=== PATIENT | male | born 1980 | race African-American/Black ===

== ENCOUNTER 2021-05-28 18:47 | Emergency (ER) | payer SELFPAY ==
--- NOTE | ~2021-05-28 | CT_ITS ---
EXAMINATION: CT FACIAL BONES WITH CONTRAST CLINICAL INFORMATION: Left eye swelling. Ecchymosis. Cellulitis. COMPARISON: None TECHNIQUE: Axial images obtained through the orbits after intravenous injection of 85 mL Omnipaque 350. Coronal and sagittal reformatted images are performed at CT scanner This CT examination was performed using dose optimization techniques as appropriate, variously including the following: *Automated exposure control *Adjustment of mA and/or kV according to patient size (this includes techniques or standardized protocols for targeted exams where dose is matched to indication/reason for exam; i.e. extremities or head) *Use of iterative reconstruction technique DLP: 407 mGy-cm FINDINGS: Preseptal swelling of the left orbit. No involvement of the orbital globe or retrobulbar structures. There is a small pocket of fluid adjacent to the lateral side of the left orbital globe this has rim enhancement and a small air collection is suggestive of an abscess. The left frontal sinus is entirely opacified. Mucosal thickening extends through the posterior into the left anterior ethmoid sinus. The left maxillary sinus is opacified. There is thick rim of mucosal thickening nearly entirely opacifying the left maxillary sinus. Partially visualized intracranial structures unremarkable. CT/CT facial bones w con IMPRESSION: 1. Preseptal swelling in the left orbit with no involvement of the orbital globe or retrobulbar structures. Small fluid collection adjacent to the anterior lateral surface of the left orbital globe concerning for abscess. 2. Sinus disease.
[2021-05-28 18:48] VITALS: BP 194/123; PULSE 87; RESP 16; TEMP 36.9; O2SAT 98; BMI 23.4
[2021-05-28 19:57] VITALS: BP 173/113; PULSE 88; RESP 20; O2SAT 99
--- NOTE | 2021-05-28 20:44 | ED.EYEPROB ---
HPI - Eye Problem General Chief complaint: Eye Problems Stated complaint: swollen left eye Time Seen by Provider: 05/28/21 19:49 Source: patient Mode of arrival: ambulatory History of Present Illness HPI Narrative: 40-year-old male with past medical history of hypertension (noncompliant on medication), presenting to ED complaining painful/swollen left eye since yesterday morning. Denies known trauma/injury or fall. Reports pain with EOM. Denies vision change/loss, fever/chills, sore throat, ear pain. Reports is supposed to wear glasses however does not. Denies chest pain, headache, numbness/tingling chief complaint: eye pain Related Data Allergies Allergy/AdvReac Type Severity Reaction Status Date / Time No Known Allergies Allergy Verified 05/28/21 18:54 Review of Systems Review of Systems: Constitutional: No Fever, No Chills, No Fatigue, No Malaise ENT/Mouth No Ear Pain, No Nasal Congestion, No Sinus Pain, No Hoarseness, No sore throat, No Rhinorrhea, No Swallowing Difficulty Eyes: +Eye Pain, +Swelling, +Redness, No Foreign Body, +tearing Discharge, No Vision Changes, +pain with EOMs Cardiovascular: No Chest Pain, No SOB, No Edema, No Palpitations Respiratory: No Cough, No Dyspnea Gastrointestinal: No Nausea, No Vomiting, No Diarrhea, No Constipation, No Abdominal pain Genitourinary: No Dysuria, No Urinary Frequency, No Urgency, No Flank Pain Musculoskeletal: No joint pain, No Myalgias, No Joint Swelling Skin: No Skin Lesions, No rash Neuro: No Weakness, No Numbness, No Headache Yes all other systems are reviewed and are negative [facility] Past Medical History Attestation statement: The following information was validated with the patient. Medical History HTN (hypertension) Social History Social History Advance Directives: No Advance Directives Information Provided: Yes Physical Exam Vital Signs: Vital Signs: Last Vital Signs Temp 99.4 F 05/29/21 00:19 Pulse 108 H 05/29/21 00:19 Resp 16 05/29/21 00:19 BP 179/95 H 05/29/21 00:19 Pulse Ox 99 05/29/21 00:19 BMI result Body Mass Index 23.4 Const: General: cooperative and no acute distress Orientation/consciousness: patient oriented x3 Limitations: no limitations HENMT: Head: Yes normal to inspection Ears: hearing grossly normal bilaterally, TM's normal bilaterally and mastoids normal General nose exam: Normal external nose present Face and sinus: Yes normal facial exam Mouth: Normal oral and palatal mucosa present Throat: Yes posterior oropharynx normal, Yes tonsils normal, Yes uvula midline, No uvula laterally displaced and No uvular edema Eyes: Other: Please refer to images above. Left eye with notable periorbital swelling No fluctuance or crepitus. EOMs intact with pain, without entrapment. + diffuse conjunctival chemosis. PERRLA. EOM: EOMs intact bilaterally Neck: Neck: Yes normal visual inspection, Yes no lymphadenopathy, Yes no meningeal signs and Yes supple Resp: Effort & Inspection: normal respiratory effort and no respiratory distress Cardio: Rate: regular rate GI: Inspection: Yes normal to inspection Skin: Rashes: no rashes Wounds: no wounds Neuro: General: patient oriented x3 and no meningeal signs Gait exam (Neuro): Normal gait present Extrem: General: Yes normal to inspection Course Course Course Narrative: -patient empirically covered with vancomycin and ceftriaxone for orbital cellulitis -mild leukocytosis of 11.3. ESR WNL. CRP mildly elevated. Lactic acid elevated to 2.2 > patient does not meet severe sepsis criteria -2213--patient persistently hypertensive after p.o. Norvasc, 5mg IV hydralazine ordered -CT facial bones w con IMPRESSION: 1. Preseptal swelling in the left orbit with no involvement of the orbital globe or retrobulbar structures. Small fluid collection adjacent to the anterior lateral surface of the left orbital globe concerning for abscess. 2. Sinus disease. >>1100 --ophthalmology Dr. Prajapati called, message left, however unable to get ahold of -patient continuously hypertensive 177/115 > additional 5 mg of IV Hydralazine given -11:25--[facility] transfer line called, spoke to ED attending Dr. Roger who accepted transfer -0030--repeat lactate normalized to 1.1. BP with improvement after 2nd dose of Hydralazine to 179/95 MDM - Eye Problem MDM Narrative Medical decision making narrative: 40-year-old male with past medical history of hypertension (noncompliant on medication), presenting to ED complaining painful/swollen left eye since yesterday morning. On exam hypertensive, physical exam as above please refer to images. Concern for orbital cellulitis vs preseptal cellulitis. Lower concern for FB. No evidence of globe rupture. Low concern for hypertensive emergency as patient denies headache, CP/SOB Plan: EKG, labs, lactic/blood cultures, CT face, empiric IV antibiotics, BP control Low concern for severe sepsis at this time Medical Records Attestation: I reviewed the patient's medical records. Lab Data Attestation: I reviewed the patient's lab results. Result diagrams: 05/28/21 20:44 05/28/21 21:12 Labs: Lab Results 05/28/21 05/28/21 05/28/21 Range/Units 20:44 20:44 20:44 WBC 11.3 H (4.8-10.8) X10*3/uL RBC 3.98 L (4.60-5.80) X10*6/uL Hgb 13.6 L (14.0-18.0) g/dl Hct 40.4 L (42.0-52.0) % MCV 101.5 H (80.0-98.0) fL MCH 34.2 H (27.0-33.0) pg MCHC 33.7 (31.0-36.0) g/dl RDW 11.7 (11.0-16.0) % Plt Count 227 (160-400) X10*3/uL MPV 8.9 L (9.4-12.4) fL Immature Gran % (Auto) 0.3 (0.0-0.4) % Neut % (Auto) 74.6 H (45-73) % Lymph % (Auto) 16.4 L (20-40) % [place] % (Auto) 7.9 (2-11) % Eos % (Auto) 0.4 (0-4) % Baso % (Auto) 0.4 (0-2) % Lymph # (Auto) 1.9 (1.2-4.9) X10*3/uL [place] # (Auto) 0.9 (0.1-1.2) X10*3/uL Eos # (Auto) 0.1 (0.0-0.4) X10*3/uL Baso # (Auto) 0.1 (0.0-0.2) X10*3/uL Abs Immat Gran (auto) 0.03 (0.00-0.03) X10*3/uL Absolute Neuts (auto) 8.5 H (2.0-8.3) x10*3/uL Absolute Nucleated RBC 0.000 (0.0-0.012) X10*3/uL Nucleated RBC % (auto) 0.0 (0.0-0.2) /100WBC ESR 6 (0-15) MM/HR Sodium (135-145) mmol/L Potassium (3.3-5.1) mmol/L Chloride (96-108) mmol/L Carbon Dioxide (22-29) mmol/L Anion Gap (12-20) BUN (9-16) mg/dL Creatinine (0.5-1.4) mg/dL Estim Creat Clear Calc Estimated GFR Random Glucose (60-115) mg/dL Lactic Acid 2.2 H* (0.5-2.0) mmol/L Lactic Acid F/U @ 2Hr (0.5-2.0) mmol/L Calcium (8.4-10.2) mg/dL C-Reactive Protein (< or = 0.50) mg/dL COVID-19 (ANGELA) (Negative) COVID-19 Clin Com 05/28/21 05/28/21 05/28/21 Range/Units 21:12 23:49 23:49 WBC (4.8-10.8) X10*3/uL RBC (4.60-5.80) X10*6/uL Hgb (14.0-18.0) g/dl Hct (42.0-52.0) % MCV (80.0-98.0) fL MCH (27.0-33.0) pg MCHC (31.0-36.0) g/dl RDW (11.0-16.0) % Plt Count (160-400) X10*3/uL MPV (9.4-12.4) fL Immature Gran % (Auto) (0.0-0.4) % Neut % (Auto) (45-73) % Lymph % (Auto) (20-40) % [place] % (Auto) (2-11) % Eos % (Auto) (0-4) % Baso % (Auto) (0-2) % Lymph # (Auto) (1.2-4.9) X10*3/uL [place] # (Auto) (0.1-1.2) X10*3/uL Eos # (Auto) (0.0-0.4) X10*3/uL Baso # (Auto) (0.0-0.2) X10*3/uL Abs Immat Gran (auto) (0.00-0.03) X10*3/uL Absolute Neuts (auto) (2.0-8.3) x10*3/uL Absolute Nucleated RBC (0.0-0.012) X10*3/uL Nucleated RBC % (auto) (0.0-0.2) /100WBC ESR (0-15) MM/HR Sodium 139 (135-145) mmol/L Potassium 3.7 (3.3-5.1) mmol/L Chloride 103 (96-108) mmol/L Carbon Dioxide 26 (22-29) mmol/L Anion Gap 14 (12-20) BUN 7 L (9-16) mg/dL Creatinine 0.89 (0.5-1.4) mg/dL Estim Creat Clear Calc 108.1 Estimated GFR > 60 Random Glucose 84 (60-115) mg/dL Lactic Acid (0.5-2.0) mmol/L Lactic Acid F/U @ 2Hr 1.1 (0.5-2.0) mmol/L Calcium 9.6 (8.4-10.2) mg/dL C-Reactive Protein 2.13 H (< or = 0.50) mg/dL COVID-19 (ANGELA) Negative (Negative) COVID-19 Clin Com See Note ECG Data Attestation: I personally reviewed and interpreted this ECG as follows: ECG interpretation date: 05/29/21 ECG interpretation time: 22:20 Interpretation: EKG normal sinus rhythm at a rate of 83. Pr interval 166. QRS 88. QTC 425. no STEMI Critical Care Time Critical Care Time Critical Care Time: Yes Total Critical Care Time: 60 Attestation: I have personally provided critical care time exclusive of time spent on separately billable procedures. Time includes review of lab data, radiology results, discussion with consultants, and monitoring for potential decompensation. Intervention performed as documented. Discharge Plan Discharge Clinical Impression: Preseptal cellulitis of left eye, Abscess Patient Disposition: [facility] Hospital Transfer Details: [facility] accepting physician Dr. Roger
[2021-05-28 20:49] LABS: MANUAL DIFF FLAG NO
[2021-05-28 20:52] LABS: Basophils Absolute Auto 0.1 X10*3/uL (0.0-0.2); Basophils Percent Auto 0.4 % (0-2); Eosinophils Absolute Auto 0.1 X10*3/uL (0.0-0.4); Eosinophils Percent Auto 0.4 % (0-4); Hematocrit 40.4 % (42.0-52.0); Hemoglobin 13.6 g/dl (14.0-18.0); Imm Gran Abs Auto 0.03 X10*3/uL (0.00-0.03); Imm Gran Pct Auto 0.3 % (0.0-0.4); Lymphocytes Absolute Auto 1.9 X10*3/uL (1.2-4.9); Lymphocytes Percent Auto 16.4 % (20-40); Mean Corpuscular HGB Conc 33.7 g/dl (31.0-36.0); Mean Corpuscular Hemoglobin 34.2 pg (27.0-33.0); Mean Corpuscular Volume 101.5 fL (80.0-98.0); Mean Platelet Volume 8.9 fL (9.4-12.4); Monocytes Absolute Auto 0.9 X10*3/uL (0.1-1.2); Monocytes Percent Auto 7.9 % (2-11); Neutrophils Absolute Auto 8.5 x10*3/uL (2.0-8.3); Neutrophils Percent Auto 74.6 % (45-73); Platelet Count 227 X10*3/uL (160-400); Red Blood Count 3.98 X10*6/uL (4.60-5.80); Red Cell Distribution Width 11.7 % (11.0-16.0); White Blood Count 11.3 X10*3/uL (4.8-10.8)
[2021-05-28] MEDS: cefTRIAXone sodium 2 GM in 0.9 % Sodium Chloride 50 ML IV (21:01)
[2021-05-28] MEDS: amLODIPine Besylate 5 MG TABLET PO (21:02)
[2021-05-28 21:03] VITALS: BP 170/118; PULSE 87
[2021-05-28 21:08] LABS: Lactic Acid 2.2 mmol/L (0.5-2.0)
--- NOTE | 2021-05-28 21:25 | PC.NURSE ---
DELAY IN LABS AND ANTIBIOTICS DUE TO IV ACCESS DIFFICULT TO OBTAIN. PATIENT IS COOPERATIVE WITH CARE AND REATTEMPT FOR IV ACCESS.
[2021-05-28 21:26] LABS: Erythrocyte Sedimentation Rate 6 MM/HR (0-15)
[2021-05-28 21:36] LABS: Anion Gap 14 (12-20); Blood Urea Nitrogen 7 mg/dL (9-16); C Reactive Protein 2.13 mg/dL (< or = 0.50); Calcium 9.6 mg/dL (8.4-10.2); Carbon Dioxide 26 mmol/L (22-29); Chloride 103 mmol/L (96-108); Creatinine Clr Calc Pharmacy 108.1; Estimated Glomerular Filt Rate > 60; Glucose Random 84 mg/dL (60-115); Potassium 3.7 mmol/L (3.3-5.1); Sodium 139 mmol/L (135-145)
[2021-05-28] MEDS: iohexoL 350 MG/ML 100 ML INFUS..BTL IV (21:49)
[2021-05-28] MEDS: vancomycin HCL 750 MG in 0.9 % Sodium Chloride 250 ML 265 MG IV (21:50)
--- NOTE | 2021-05-28 22:14 | ECG_ITS ---
Test Reason : HYPERTENTION Blood Pressure : / mmHG Vent. Rate : 083 BPM Atrial Rate : 083 BPM P-R Int : 166 ms QRS Dur : 088 ms QT Int : 362 ms P-R-T Axes : 073 042 012 degrees QTc Int : 425 ms Normal sinus rhythm Nonspecific T wave abnormality Abnormal ECG No previous ECGs available Referred By: Ines Jones Electronically Signed By:Damaso Zimmerman
[2021-05-28 22:26] VITALS: BP 177/115; PULSE 82; RESP 20; O2SAT 97
[2021-05-28] MEDS: 0.9 % Sodium Chloride 1,000 ML 999 ML IV (22:36)
[2021-05-28] MEDS: hydrALAZINE HCl 20 MG/ML VIAL 5 MG IVPUSH ×2 (22:36→23:33)
[2021-05-28 22:47] LABS: Reflex Lactate? Lactic Acid Added
--- NOTE | 2021-05-28 23:27 | PC.NURSE ---
PATIENT CONTINUED TO HAVE HYPERTENSION. ATTEMPTING TO MEDICATE PER MAR, PATIENT REFUSING STATING THAT MEDICATION HAS NOT WORKED YET AND NOT WANTING ADDITIONAL MEDICATIONS TO LOWER BLOOD PRESSURE. PROVIDER MADE AWARE AND GOING IN TO SPEAK WITH PATIENT REGARDING RESULTS AND PLAN OF CARE.
[2021-05-28 23:33] VITALS: BP 191/116; PULSE 94
[2021-05-29 00:11] LABS: ~Lactic Acid-LAB USE ONLY 1.1 mmol/L (0.5-2.0)
[2021-05-29 00:19] VITALS: BP 179/95; PULSE 108; RESP 16; TEMP 37.4; O2SAT 99
[2021-05-29 00:25] LABS: COVID-19 Test Negative (Negative)
--- NOTE | 2021-05-29 00:40 | PC.NURSE ---
spoke with Mey wheeler at [facility] emergency department and gave report to her regarding the transfer of this patient. receiving rn had no further questions or concerns at this time.
== END 2021-05-29 01:06 | disposition short-term general hospital (02) ==
PROVIDERS: Physician Assistant; Emergency Provider Internal Medicine
DX: H05.012 Cellulitis of left orbit (principal); H57.12 Ocular pain, left eye; I10 Essential (primary) hypertension; Z91.14 Patient's other noncompliance with medication regimen; Z20.822 Contact with and (suspected) exposure to COVID-19
CPT/HCPCS: 36415; 70487; 80048; 83605; 85025; 85652; 86140; 87040; 87635; 93005; 96361; 96365; 96375; 96376; 99285; 99291; J0696; J3370; Q9967

== ENCOUNTER 2024-12-30 21:42 | Emergency (ER) | payer SELFPAY ==
[2024-12-30 21:53] VITALS: BP 189/88; PULSE 111; RESP 18; TEMP 36.2; O2SAT 97; BMI 20.4
[2024-12-30 22:02] VITALS: BP 189/88; PULSE 111; RESP 18; TEMP 36.2; O2SAT 97
--- OUTSIDE RECORDS SUMMARY | 2024-12-30 22:48 | XMS_ITS | Clinical Summary ---
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 Name Role Phone Unavailable Primary Care Provider Unavailabl e Social History Tobacco Use Types Packs/Day Years Used Date Smoking Tobacco: Never Assessed Sex and Gender Information Value Date Recorded Sex Assigned at Not on file Legal Sex Male 12:17 PM EST Gender Identity Not on file Sexual Orientation Not on file Plan of Treatment Health Maintenance Due Date Last Done Comments DTaP,Tdap,and Td Vaccines (1 - Tdap) 1997 Hepatitis B Vaccines (1 of 3 - 19+ 3-dose series) 1997 Depression Screening 04/17/2024 COVID-19 Vaccine (1 - 2023-2 5 season) 2024 Influenza Vaccine (#1) 2024 HIB Vaccines Aged Out No longer eligi ble based on patient's age to complete this topic HPV Vaccines Aged Out No longer eligi ble based on patient's age to complete this topic Hepatitis A Vaccines Aged Out No long er eligible based on patient's age to complete this topic IPV Vaccines Aged Out No longer eligi ble based on patient's age to complete this topic MMR Vaccines Aged Out No longer eligi ble based on patient's age to complete this topic Meningococcal ACWY Vaccine Aged Out N o longer eligible based on patient's age to complete this topic Meningococcal B Vaccine Aged Out No l onger eligible based on patient's age to complete this topic Pneumococcal Vaccine: Pediat rics (0 to 5 Years) and At-Risk Patients (6 to 49 Years) Aged Out No longer eligible b ased on patient's age to complete this topic RSV Immunization Patients Un edwin 20 months Aged Out No longer eligible b ased on patient's age to complete this topic Varicella Vaccines Aged Out No longer eligible based on patient's age to complete this topic
--- NOTE | 2024-12-30 23:25 | ED.GENADULT ---
HPI - General Adult General Chief complaint: ETOH/Substance Use Stated complaint: etoh Time Seen by Provider: 12/30/24 22:05 Source: patient and RN notes reviewed Mode of arrival: EMS Limitations: altered mental status History of Present Illness ED Provider: Cony SPENCE narrative: 44-year-old male presents for evaluation of acute alcohol intoxication. Per EMS, the patient was found in the side of the road and brought to the hospital for evaluation. The patient admits to drinking alcohol today Denies any drug use. He has no complaints in his wondering why he is here and if he can be discharged home because he has work in the morning Related Data Allergies Allergy/AdvReac Type Severity Reaction Status Date / Time No Known Allergies Allergy Verified 12/30/24 22:01 Review of Systems Constitutional: Constitutional: Denies body ache(s), Denies chills, Denies fever(s) and Denies headache(s) Eyes: Eyes: Denies blurry vision ENT: Denies vertigo, Denies dizziness, Denies dry mouth and Denies headache(s) Cardiovascular: Cardiovascular: Denies chest pain and Denies dyspnea on exertion Respiratory: Respiratory: Denies cough and Denies dyspnea on exertion Gastrointestinal: Gastrointestinal: Denies abdominal pain, Denies nausea and Denies vomiting Musculoskeletal: Musculoskeletal: Denies back pain Integumentary/Breasts: Skin/Breast: Denies rash Neurologic: Denies vertigo, Denies dizziness and Denies headache(s) Psychiatric: Psychiatric: Denies anxiety PMF Past Medical History Medical History HTN (hypertension) Social History Social History Smoked in Last 30 Days: No Use of substances other than those prescribed or required for medical reasons: No Advance Directives: No Advance Directives Information Provided: No Do you have a plan to hurt others: No Plan Physical Exam ED Vital Signs: Vital Signs - 24 hr 12/30/24 21:53 12/30/24 22:02 12/31/24 00:26 Temperature 97.2 F 97.2 F Pulse Rate 111 H 111 H Respiratory Rate 18 18 16 Blood Pressure 189/88 H 189/88 H Pulse Oximetry 97 97 97 Oxygen Delivery Method Room Air Room Air Room Air 12/31/24 02:00 Temperature Pulse Rate Respiratory Rate 16 Blood Pressure Pulse Oximetry Oxygen Delivery Method BMI result Body Mass Index 20.4 Const General: healthy appearing, comfortable, no acute distress, alert and awake Nutritional Appearance: well nourished Orientation/consciousness: patient oriented x3 HENMT Head: Yes normocephalic and Yes atraumatic Eyes Eyelids: Yes eyelids normal Conjunctivae: conjunctivae normal Sclerae: sclerae normal Corneas: corneas normal Pupils: Equal, round and reactive pupils present EOM: EOMs intact bilaterally Neck Neck: Yes full ROM Resp Effort & Inspection: normal respiratory effort, able to speak in complete sentences and not labored Skin General skin exam: elasticity normal Neuro General: patient oriented x3 Cranial nerves: Yes Equal, round and reactive pupils present and Yes Bilaterally intact EOM present Cognition (Neuro): normal cognition Extrem Other: Moving all extremities well without any obvious deformities Course Reevaluation(s) Reevaluation #1: The patient resting comfortably. Continue observation Time: 02:16 Reevaluation #2: 6:46 AM 12/31/2024 (Ailyn MONAHAN): Patient is signed out to this provider at shift change, in summary the patient is a 44-year-old male presenting to the ED for evaluation after he was found on the road side with alcohol intoxication. Per sign-out the patient had no trauma, admits to alcohol use and denied any other substance use. The patient was signed out pending sober re-evaluation. At this time the patient is awake, ambulated with a steady gait, and appropriate for discharge. Medical Decision Making Medical Decision Making MDM Narrative: 44-year-old male presents for evaluation of alcohol intoxication. The patient admits to drinking alcohol today. He reports that he lives in [place] in his not quite sure how he ended up and [place]. He offers no complaints, there are no signs of trauma, he is well-appearing with stable vital signs. However he seems somewhat unsteady on his feet with ambulation. Plan for observation and metabolize to a safe discharge Differential Diagnosis Differential Diagnoses: The differential diagnosis associated with the presentation includes Acute alcohol intoxication Substance abuse Altered mental status Psychosis Discharge Plan Discharge Clinical Impression: Alcoholic intoxication Qualifiers: Complication of substance-induced condition: uncomplicated Qualified Code(s): F10.920 - Alcohol use, unspecified with intoxication, uncomplicated Patient Disposition: Home, Self-Care Instructions: Abuse of Alcohol (ED) Additional Instructions: Alcohol use disorder You were seen in the Emergency Department today for treatment of alcohol use disorder.? You may have been given medications to help with your withdrawal symptoms.? Please do not drink alcohol with them. This is very dangerous and can cause respiratory depression or other adverse reactions depending on the medication. If you would like to cut down or stop your alcohol use please consider calling our outpatient Addiction Treatment office:? [facility], [place] ([id number]) [address] [place] [address] You have also been given a list of treatment providers in the area that can assist as well.? If you experience seizures, vomiting blood, black stools, falls, severe headache, chest pain, fevers, trouble breathing, hallucinations or any other concerns you need to call 911 or seek immediate care. Please stay hydrated. Print Language: Unable To Collect
[2024-12-31 00:26] VITALS: RESP 16; O2SAT 97
[2024-12-31 02:00] VITALS: RESP 16
--- NOTE | 2024-12-31 09:32 | PC.NURSE ---
Per Thais Mallory RN, patient was discharged around 8:30am today, but was still on ED tracker. Removed from ED tracker at this time. Patient was not discharged or cared for by this RN.
== END 2024-12-31 08:30 | disposition home or self-care (01) ==
PROVIDERS: Emergency Provider Student in an Organized Health Care Education/Training Program
DX: F10.920 Alcohol use, unspecified with intoxication, uncomplicated (principal); Y90.9 Presence of alcohol in blood, level not specified; I10 Essential (primary) hypertension
CPT/HCPCS: 99284